=== PATIENT | female | born 1950 | race African-American/Black ===

== ENCOUNTER 2017-10-22 21:54 | Inpatient (IN) | payer OTHER ==
[~2017-10-22] VITALS: Ht 167.6 cm; Wt 66.0 kg
[~2017-10-22 21:54] MED LIST: DYAZIDE, MA1 CAPSULE PO; K-DUR20 MEQ PO; KEPPRA500 MG PO; LITE COAT ASPI325 M1 PO; NITROSTAT0.4 MG SL; NORVASC10 MG PO; PRAVACHOL80 MG PO
[2017-10-23] VITALS (7 sets, daily range): BP systolic 123–138; BP diastolic 61–71
[2017-10-24] VITALS (17 sets, daily range): BP systolic 111–135; BP diastolic 49–73
[2017-10-25 03:15] VITALS: BP 110/54
[2017-10-25 07:36] VITALS: BP 119/58
[2017-10-25 11:36] VITALS: BP 125/61
== END 2017-10-25 14:47 | disposition home or self-care (01) | DRG 27 ==
LOC: ENRESERV 21:54 → 2SOUTH 10-23 06:51 → 4WEST 10-23 06:51 → RAD 10-23 08:00 → EDSTATUS 10-23 08:00 → 2SOUTH 10-23 08:00 → ENRESERV 10-23 18:01 → 4WEST 10-23 18:54 → ENRESERV 10-24 11:52 → 3EAST 10-24 14:03
PROC: 00B Central Nervous System and Cranial Nerves, Excision (ICD-10-PCS; principal; 2017-10-23)
DX: C79.31 Secondary malignant neoplasm of brain (principal); I10 Essential (primary) hypertension; E78.00 Pure hypercholesterolemia, unspecified; Z85.118 Personal history of other malignant neoplasm of bronchus and lung; Z87.891 Personal history of nicotine dependence; Z92.21 Personal history of antineoplastic chemotherapy; Z92.3 Personal history of irradiation; Z85.048 Personal history of other malignant neoplasm of rectum, rectosigmoid junction, and anus; Z79.82 Long term (current) use of aspirin
CPT/HCPCS: 70450; 77021; 84132; 86850; 86900; 86901; 87641; 88307; 88341 TC; 88342 TC; C1713; J0131; J0690; J1100; J1170; J2405; J2710; J3010; J3480; J7643; Q0175